=== PATIENT | male | born 1950 | race Caucasian/White ===

== ENCOUNTER 2018-07-07 15:33 | Emergency (ER) | payer BC, OTHER ==
[~2018-07-07] VITALS: Ht 195.6 cm; Wt 102.1 kg
[2018-07-07 15:35] VITALS: BP_SYST 162
--- NOTE | 2018-07-07 15:57 | NUR ---
Placed in room 07 . Placed on pediatric psychiatrist, blood pressure machine and pulse oximeter. To gown for exam. Side rails up.
--- NOTE | 2018-07-07 16:00 | NUR ---
ER Dr. Díaz at bedside examining patient.
--- NOTE | 2018-07-07 16:02 | NUR ---
Pt AAOx4 ambulated into ED c/o 03/09 non-radiating chest pain since 0600 this morning. Pt denies taking medication for pain, states pain is resolving since then, but still feels "achyness." Pt took 3 low dose aspirin with mild relief. No other injuries/complaints per pt/noted. Will continue to monitor.
[2018-07-07] MEDS ORDERED: NACL 0.9% 1,000 ML IV ONE (16:10)
[2018-07-07] MEDS ORDERED: MORPHINE 2 MG/ML INJ. SYRINGE IVP ONE (16:15)
--- NOTE | 2018-07-07 16:15 | NUR ---
Radiology at bedside
[2018-07-07 16:29] LABS: ANION GAP 8 (5-15); CALCIUM 9.1 mg/dL (8.4-11.0); CHLORIDE 105 mmol/L (98-107); CREATININE 1.02 mg/dL (0.55-1.30); GLUCOSE 127 mg/dL (70-99); POTASSIUM 3.9 mmol/L (3.5-5.1); SODIUM SERUM 139 mmol/L (136-145); UREA NITROGEN, BLOOD 20 mg/dL (8-21)
--- NOTE | 2018-07-07 16:29 | NUR ---
Patient is driving, refused morphine.
[2018-07-07 16:30] LABS: GFR AFRICAN AMERICAN 94 mL/min (>90)
[2018-07-07 16:32] LABS: BASOPHILS % (AUTO) 0.5 % (0.0-2.0); EOSINOPHILS # (AUTO) 0.2 K/uL (0.0-0.4); EOSINOPHILS % (AUTO) 2.8 % (0.0-4.0); HEMATOCRIT 47.9 % (36-54); HEMOGLOBIN 15.6 g/dL (14.0-18.0); INR 1.1 (0.80-1.20); LYMPHOCYTES # (AUTO) 1.2 K/uL (1.0-5.5); LYMPHOCYTES % (AUTO) 17.6 % (20.5-51.5); MEAN CORPUSCULAR HEMOGLOBIN 31 pg (27-31); MEAN CORPUSCULAR HGB CONC 33 % (32-36); MEAN CORPUSCULAR VOLUME 96 fL (79.0-98.0); MONOCYTES # (AUTO) 0.7 K/uL (0.0-1.0); MONOCYTES % (AUTO) 10.1 % (1.7-9.3); NEUTROPHILS # (AUTO) 4.4 K/uL (1.8-7.7); PLATELET COUNT (AUTO) 287 K/uL (130-430); RED CELL DISTRIBUTION WIDTH 12.7 % (9.0-15.0); WHITE BLOOD COUNT (AUTO) 6.6 K/uL (4.8-10.8)
[2018-07-07 16:37] LABS: ALANINE AMINOTRANSFERASE 26 U/L (12-78); ALBUMIN 2.9 g/dL (3.4-4.8); ASPARTATE AMINOTRANSFERASE 22 U/L (10-37); TOTAL BILIRUBIN 0.4 mg/dL (0.0-1.0)
--- NOTE | 2018-07-07 17:00 | NUR ---
Patient given written and verbal discharge instructions and verbalizes understanding. ER MD Díaz discussed with patient the results and treatment provided. Patient in stable condition. ID arm band removed. IV catheter removed intact and dressing applied, no active bleeding. Rx of Protonix given. Patient educated on pain management and to follow up with PMD. Pain Scale 0. Opportunity for questions provided and answered. Medication side effect fact sheet provided.
[2018-07-07 17:34] VITALS: BP_SYST 145
== END 2018-07-07 17:34 | disposition home or self-care (01) ==
LOC: SED 15:33
DX: R07.89 Other chest pain (principal); I48.91 Unspecified atrial fibrillation; I10 Essential (primary) hypertension
CPT/HCPCS: 36415; 71045; 80053; 84484; 85025; 85610; 85730; 93005; 96360; 99285; J2270; J7030